=== PATIENT | female | born 1995 | race Caucasian/White ===

== ENCOUNTER 2025-06-09 05:55 | Day surgery (SDC) | payer OTHER ==
[~2025-06-09] VITALS: Ht 157.5 cm; Wt 91.0 kg
[~2025-06-09 05:55] MED LIST: LACTATED RINGER'S 1,000 ML IV SCH; METFORMIN HCL500 MG PO
[2025-06-09 06:14] VITALS: BP 127/64
[2025-06-09] MEDS ORDERED: DEXAMETHASONE SOD PHOS 10 MG/ML VIAL ONE (06:27)
[2025-06-09] MEDS ORDERED: LIDOCAINE HCL 2% 5 ML SDV ONE ×2 (06:30→06:57)
[2025-06-09] MEDS ORDERED: Ropivacaine HCl 0.5% 30 ML VIAL ONE (06:30)
[2025-06-09] MEDS ORDERED: MIDAZOLAM HCL 2 MG/2 ML VIAL ONE (06:30)
[2025-06-09] MEDS ORDERED: IBLOOD GLUCOSE TEST STRIP 1 EA TEST VI PRN ×2 (07:00→07:30)
[2025-06-09] MEDS ORDERED: LIDOCAINE HCL 1% 5 ML SDV INJ ONE (07:00)
[2025-06-09] MEDS ORDERED: CEFAZOLIN SODIUM 2 GM in SODIUM CHLORIDE 0.9% 100 ML IV SCH (07:00)
[2025-06-09] MEDS ORDERED: HYDROmorphone HCL 1 MG/ML SYR IV PRN (07:30)
[2025-06-09] MEDS ORDERED: NALOXONE HCL 0.4 MG SYR IV PRN (07:30)
[2025-06-09] MEDS ORDERED: PROCHLORPERAZINE EDISYLATE 10 MG/2 ML VIAL IV PRN (07:30)
[2025-06-09] MEDS ORDERED: fentaNYL citrate 50 MCG/ML SDV IV PRN (07:30)
[2025-06-09] MEDS ORDERED: HYDROCODONE/ACETA 7.5/325 TAB PO PRN (08:15)
[2025-06-09] MEDS ORDERED: DICLOFENAC SODI75 MG PO (08:16)
[2025-06-09] MEDS ORDERED: HYDROCODON-ACE1 EA11 PO (08:16)
[2025-06-09 08:40] VITALS: BP 114/71
--- NOTE | 2025-06-09 08:59 | NUR ---
0845: PATIENT BACK IN DAY SURGERY ROOM FROM PACU. DENIES PAIN. SPINAL AND RIGHT POPLITEAL SCIATIC BLOCKS IN PLACE. VS CHECKED. IV SITE WNL. PATIENT GIVEN CRACKERS AND ICE WATER. AT BEDSIDE. CALL LIGHT WITHIN REACH.
[2025-06-09] MEDS ORDERED: DICLOFENAC SOD 75 MG TABEC PO SCH (09:00)
[2025-06-09 09:35] VITALS: BP 107/67
--- NOTE | 2025-06-09 09:39 | NUR ---
0935 HOURLY ROUNDING ONE WITH PT. PT SPINAL LEVEL L4. RIGHT ABOVE THE LEFT KNEE. VITALS TAKEN. PT REPORTS NO PAIN AT THIS TIME. PT HAS CALL LIGHT WITHIN REACH. PT BED LOW AND LOCKED. SPOUSE AT BEDSIDE.
[2025-06-09 10:37] VITALS: BP 112/64
--- NOTE | 2025-06-09 10:41 | NUR ---
1035 spinal level noted to be l5. PT CAN MOVE FOOT MORE. PT VITALS TAKEN. IV ASSESSSED. PT REPORTS NO PAIN AT THIS TIME. PT HAS NO NAUSEA AT THIS TIME. PT SPOUSE IN ROOM. PT RESTING COMFORTABLEY IN BED, CALL LIGHT WITHIN REACH. BED LOW AND LOCKED
[2025-06-09 10:44] VITALS: BP 111/66
--- NOTE | 2025-06-09 10:50 | NUR ---
06/09/25 1050 Sully Rodríguez 0815- PT ARRIVES TO PACU, AWAKE, SLIGHTLY DROWSY. DENIES PAIN OR NAUSEA. CAP REFILL TO RIGHT FOOT BRISK. BOOT AND DRESSING IN PLACE. LR INFUSING TO RFA IV. ABD SOFT, NON DISTENDED. ALL MONITORS IN PLACE. BREATHING EVEN AND NON LABORED ON ROOM AIR. 0825- PT REMAINS AWAKE, PAIN FREE AND NO NAUSEA. CONTINUE TO MONITOR. 0835- PT TAKEN BACK TO DAY SURGERY, REPORT TO Juan XAVIER RN AT BEDSIDE, IN ROOM, CARE OF PT TURNED OVER AT THIS TIME.
--- NOTE | 2025-06-09 11:07 | NUR ---
1100 PT USED CALL LIGHT TO ALERT RN THAT PT NEEDED TO URINATE. SPINAL CHECKED, PT SPINAL HAS RESOLVED. PT FERNANDEZ FEELING DOWN TO BOTTOM OF THE LEFT FOOT. PT ABLE TO USE CRUTCHES AND AMBULATE TO BATHROOM WITHOUT ASSISTANCE. PT ABLE TO VOID 900 MLS OF CLEAR YELLOW URINE. PT ABLE TO AMBULATE BACK TO ROOM WITH CRUTCHES. PT GETTING DRESSES WITH SPOUSE'S ASSISTANCE.
--- NOTE | 2025-06-09 11:25 | NUR ---
1110 DISCHARGE INFORMATION GONE OVER WITH PT AND SPOUSE. NO QUESTIONS AT THIS TIME. IV REMOVED FOR DISCHARGE. PT HAS DISCHARGE PAPERWORK IN HAND. 1120 PT DISCHARGED FROM DAY SURGERY VIA WHEELCHAIR. PT ABLE TO AMBULATE TO WHEELCHAIR WITH CRUTCHES. PT WHEELED TO THE FRONT OF THE HOSPITAL TO PT'S SPOUSE CAR. PT HAS ALL PERSONAL ITEMS WITH THEM.
--- NOTE | 2025-06-14 06:57 | OR ---
[facility] [address], [place] [address] Signed DATE OF OPERATION: 06/09/2025 SURGEON: Mallika Hayward MD PREOPERATIVE DIAGNOSIS: Achilles tendon rupture, right. POSTOPERATIVE DIAGNOSIS: Achilles tendon rupture, right. PROCEDURE PERFORMED: Achilles tendon repair, right. REGIONAL CLINICAL RESEARCH ASSOCIATE: Milla Hussein PA-C. Milla was present and critical for all portions of procedure. ANESTHESIA: Spinal. BLOOD LOSS: None. TOURNIQUET TIME: 49 minutes. 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 She was at work and felt a pop in her heel and went to the ER. They diagnosed it as an ankle sprain and she was discharged. However, she continued to have problems and returned to the ER where they eventually found the Achilles tendon rupture. She followed up with me after MRI confirmed the tear. Risks and benefits of operative treatment were discussed with her and she elected to proceed. Once consent was obtained, she was taken to the operating room. After adequate anesthesia, she was placed in the prone position on the operating room table. Two chest rolls were placed. All downside pressure points were well padded. The patient was awake during this positioning and was able to confirm comfort. The tourniquet was then placed around the right proximal thigh and the leg was prepped and draped in a standard sterile fashion. The leg was exsanguinated using Esmarch bandage and tourniquet Electronically Signed By: MALLIKA HAYWARD MD 06/14/25 0657 PATIENT NAME: ELI PAIGE OPERATIVE REPORT DATE OF : [birth year] REPORT #: [id number] PHYSICIAN: MALLIKA HAYWARD MD PCP: BRYSON DELEON MD REPORT IS CONFIDENTIAL AND NOT TO BE RELEASED WITHOUT AUTHORIZATION [facility] [address], [place] [address] Signed inflated to 250 mmHg. The Achilles tendon approached through a medial incision longitudinally and carried through skin and subcutaneous tissue. It was taken down to the paratenon and the soft tissue. Flaps were developed off this. The peritenon was then incised longitudinally and the tendon rupture was confirmed. The tendon on the proximal and distal ends were then dissected free from the surrounding peritenon proximally and distally. Using an 0 PDS traction stitch, I was able to digitally release the tendon proximally from the adhesions and mobilized it inferiorly. The distal stump was similarly released. Then, using a 1.5 FiberTape, we placed two Krackow stitches in the proximal stump and two Krackow stitches in the distal stump using five locking throws on each side. The corresponding ends were then taken through the opposite stump. One suture limb was taken over the top of the rip-stop suture, the other was inferior to it. This was done on both ends. Then, the tendon ends were reduced until they were well apposed. The two sutures were then tied distally and proximally such that knots were out of the wound. The sutures were then cut. A running transverse tendinous stitch was then made with 2-0 Prolene and the wound was copiously irrigated with normal saline. The peritenon was then closed using a running 2-0 Stratafix, subcutaneous tissue with 2-0 Monocryl, and the skin with 3-0 Stratafix. Wound was sealed with LiquiBand and Steri-Strips and was dressed with an Allevyn dressing, ABDs, and Alcon wrap and she was placed back into her boot. She tolerated the procedure well. All sponge, needle, and instrument counts were correct. Mallika Hayward MD BA/MODL /[id number] Copies: ~ Electronically Signed By: MALLIKA HAYWARD MD 06/14/25 0657 PATIENT NAME: ELI PAIGE OPERATIVE REPORT DATE OF : [birth year] REPORT #: [id number] PHYSICIAN: MALLIKA HAYWARD MD PCP: BRYSON DELEON MD REPORT IS CONFIDENTIAL AND NOT TO BE RELEASED WITHOUT AUTHORIZATION
== END 2025-06-09 11:20 | disposition home or self-care (01) ==
LOC: DS 05:55
PROVIDERS: ATTEND Specialist
PROC: 0LQN0ZZ Repair Right Lower Leg Tendon, Open Approach (ICD-10-PCS; principal; 2025-06-09 07:00)
DX: S86.011A Strain of right Achilles tendon, initial encounter (principal); X58.XXXA Exposure to other specified factors, initial encounter
CPT/HCPCS: 01472; 64445; 84703; J0688; J1100; J2003; J2250; J2405; J2704; J2795; J7121